=== PATIENT | male | born 1985 | race Caucasian/White ===

== ENCOUNTER 2017-11-13 08:31 | Emergency (ER) | payer MEDICARE ==
[~2017-11-13] VITALS: Ht 170.2 cm; Wt 72.6 kg
[2017-11-13 08:31] VITALS: BP_SYST 146
[2017-11-13] MEDS ORDERED: KETOROLAC TROMETHAMINE 60 MG/2 ML VIAL IM ONE (09:00)
[2017-11-13 10:12] LABS: BILIRUBIN,URINE NEGATIVE (NEGATIVE); BLOOD, URINE NEGATIVE (NEGATIVE); CLARITY/URINE CLEAR (CLEAR); COLOR,URINE YELLOW (YELLOW); GLUCOSE,URINE NEGATIVE (NEGATIVE); KETONES,URINE NEGATIVE (NEGATIVE); LEUKOCYTE ESTERASE ,URINE NEGATIVE (NEGATIVE); NITRITE, URINE NEGATIVE (NEGATIVE); PROTEIN URINE NEGATIVE (NEGATIVE); UROBILINOGEN,URINE 0.2 (0.2-1.0)
[2017-11-13 10:26] VITALS: BP_SYST 123
== END 2017-11-13 10:29 | disposition home or self-care (01) ==
LOC: SED 08:31 → EDBD 08:31 → SED 10:29
DX: S16.1XXA Strain of muscle, fascia and tendon at neck level, initial encounter (principal); S39.012A Strain of muscle, fascia and tendon of lower back, initial encounter; R03.0 Elevated blood-pressure reading, without diagnosis of hypertension; V89.2XXA Person injured in unspecified motor-vehicle accident, traffic, initial encounter; Y93.89 Activity, other specified; Y92.410 Unspecified street and highway as the place of occurrence of the external cause; Y99.8 Other external cause status
CPT/HCPCS: 72040; 72100; 81003; 96372; 99285; J1885